=== PATIENT | male | born 1990 | race Caucasian/White ===

== ENCOUNTER 2018-10-30 13:00 | Emergency (ER) | payer MEDICAID ==
[~2018-10-30] VITALS: Ht 180.3 cm; Wt 88.0 kg
[2018-10-30] MEDS ORDERED: IBUPROFEN 600MG TABLET PO ONE (13:45)
[2018-10-30] MEDS ORDERED: TETANUS, DIPHTHERIA, PERTUSSIS VAC/PF 0.5ML (>7YR OLD) IM ONE (13:45)
[2018-10-30] MEDS ORDERED: BACITRACIN 15GM TUBE TOP ONE (13:45)
[2018-10-30 17:40] VITALS: BP 145/85
== END 2018-10-30 17:50 | disposition home or self-care (01) ==
LOC: ER 13:00
DX: S83.92XA Sprain of unspecified site of left knee, initial encounter (principal); S40.812A Abrasion of left upper arm, initial encounter; S40.811A Abrasion of right upper arm, initial encounter; V29.3XXA Motorcycle rider (driver) (passenger) injured in unspecified nontraffic accident, initial encounter; Y93.89 Activity, other specified; Y92.9 Unspecified place or not applicable; Y99.8 Other external cause status
CPT/HCPCS: 71045; 72170; 73090; 73562; 73630; 90471; 90715; 93005; 99283